=== PATIENT | female | born 1995 | race Asian ===

== ENCOUNTER 2018-01-26 16:13 | Emergency (ER) | payer OTHER ==
[2018-01-26 16:37] VITALS: BP 124/68
--- NOTE | 2018-01-26 16:47 | UC ---
Skin Complaint HPI - HPI Summary HPI Summary: Patient states there was a tick on her leg for about 1 hour. The tick never attached but just wanted to discuss it with someone to be sure she was okay - History of Current Complaint Chief Complaint: UCLowerExtremity Time Seen by Provider: 01/26/18 16:33 Stated Complaint: TICK BITE Hx Obtained From: Patient Hx Last Menstrual Period: 12/31/17 ?: No Onset/Duration: Sudden Onset Pain Intensity: 0 Pain Scale Used: 0-10 Numeric Aggravating Factor(s): Nothing Alleviating Factor(s): Nothing Associated Signs & Symptoms: Positive: Negative - Allergy/Home Medications Allergies/Adverse Reactions: Allergies Allergy/AdvReac Type Severity Reaction Status Date / Time alcohol Allergy Intermediate Rash Verified 01/26/18 16:37 Home Medications: Home Medications NK [No Home Medications Reported] 01/26/18 [History Confirmed 01/26/18] Review of Systems Constitutional: Negative Skin: Negative Eyes: Negative ENT: Negative Respiratory: Negative Cardiovascular: Negative Gastrointestinal: Negative Genitourinary: Negative Motor: Negative Neurovascular: Negative Musculoskeletal: Negative Neurological: Negative Psychological: Negative Is Patient Immunocompromised?: No All Other Systems Reviewed And Are Negative: Yes PMH/Surg Hx/FS Hx/Imm Hx Previously Healthy: Yes - Surgical History Surgical History: None - Family History Known Family History: Positive: None - Social History Occupation: Student Lives: With Family Alcohol Use: Occasionally Substance Use Type: None Smoking Status (MU): Never Smoked Tobacco Physical Exam Triage Information Reviewed: Yes Appearance: Well-Appearing, No Pain Distress, Well-Nourished Vital Signs: Initial Vital Signs Temp 99.2 F 01/26/18 16:31 Pulse 82 01/26/18 16:31 Resp 16 01/26/18 16:31 BP 124/68 01/26/18 16:31 Pulse Ox 98 01/26/18 16:31 Vital Signs Reviewed: Yes Eye Exam: Normal Eyes: Positive: Conjunctiva Clear ENT Exam: Normal ENT: Positive: Normal ENT inspection, Hearing grossly normal. Negative: Trismus , Muffled voice, Hoarse voice Dental Exam: Normal Neck exam: Normal Neck: Positive: Supple, Nontender Respiratory Exam: Normal Respiratory: Positive: Chest non-tender, No respiratory distress, No accessory muscle use Cardiovascular Exam: Normal Cardiovascular: Positive: RRR, Pulses Normal, Brisk Capillary Refill Musculoskeletal Exam: Normal Musculoskeletal: Positive: Strength Intact, ROM Intact, No Edema Neurological Exam: Normal Neurological: Positive: Alert, Muscle Tone Normal Psychological Exam: Normal Skin Exam: Normal Course/Dx - Course Course Of Treatment: Patient educated on how to do tick checks every day. No further treatment required - Diagnoses Provider Diagnoses: Tick exposure, Lyme education, Discharge - Sign-Out/Discharge Documenting (check all that apply): Discharge/Admit/Transfer - Discharge Plan Condition: Stable Disposition: HOME Patient Education Materials: Tick Bite (ED) Referrals: [facility] [Outside] - If Needed - Billing Disposition and Condition Condition: STABLE Disposition: HOME
== END 2018-01-26 17:00 | disposition home or self-care (01) ==
LOC: UCEAST 16:13
DX: S80.869A Insect bite (nonvenomous), unspecified lower leg, initial encounter (principal); W57.XXXA Bitten or stung by nonvenomous insect and other nonvenomous arthropods, initial encounter; Y93.9 Activity, unspecified; Y92.9 Unspecified place or not applicable
CPT/HCPCS: 99201; G0463